=== PATIENT | female | born 1985 | race Caucasian/White ===

== ENCOUNTER 2018-01-02 09:02 | Emergency (ER) | payer SELFPAY | END 2018-01-02 10:31 | disposition home or self-care (01) | LOC: ER 09:02 | DX: J02.9 Acute pharyngitis, unspecified (principal); J45.909 Unspecified asthma, uncomplicated | CPT/HCPCS: 99283 ==

== ENCOUNTER 2018-12-29 07:14 | Emergency (ER) | payer SELFPAY ==
[2018-01-02 10:08] VITALS: BP 115/77
[~2018-12-29] VITALS: Ht 160 cm; Wt 87.5 kg
[~2018-12-29 07:14] MED LIST: ALBU2.5V8 INH; AMOX1TAB61 PO; BENZ100C PO; CETI10TA22 PO; FLUC150T PO; FLUT10.6 IH; FLUT12AE INH; FLUT1DIS3 IH; LEVO500T59 PO; METH4TAB2 PO; MONT10TA6 PO; PANT40TA3 PO; PRED20TA PO; PRED5TAB19 PO
[2018-12-29] MEDS ORDERED: GUAI12003 PO (07:46)
[2018-12-29] MEDS ORDERED: PRED50TA PO (07:46)
[2018-12-29] MEDS ORDERED: CEPH-264 PO (07:46)
--- NOTE | 2018-12-29 08:01 | PHYS DOC ---
Past Medical History Past Medical History: Asthma Past Surgical History: Alcohol Use: Rarely Drug Use: None Adult General Chief Complaint Chief Complaint: COUGH HPI HPI Patient is a 33 year old female with history of asthma who presents with nasal congestion, rhinorrhea, nonproductive cough past several days. Patient also reports sore throat. No fever chills, nausea vomiting or sweats. No palpitations , shortness breath or chest pain. No other acute symptoms or complaints. No medications or therapy's taken prior to ED arrival. Patient does report history of asthma with previous hospitalization due to asthma. She does not routinely use inhalers and does not have a primary care provider. [] Review of Systems Review of Systems ROS as per HPI [] All other systems were reviewed and found to be within normal limits, except as documented in this note. Allergies Allergies Allergies Coded Allergies Type Severity Reaction Last Updated Verified No Known Drug Allergies 07/12/14 No Physical Exam Physical Exam Constitutional: Well developed, well nourished, no acute distress, non-toxic appearance. [] HENT: Normocephalic, atraumatic, bilateral external ears normal, oropharynx moist, no oral exudates, nose ingestion, clear rhinorrhea[] Eyes: PERRLA, EOMI, conjunctiva normal. [] Neck: Normal range of motion. [] Cardiovascular:Heart rate regular rhythm, no murmur [] Lungs & Thorax: Respirations nonlabored mildly diminished, no wheezes rales or rhonchi. [] Abdomen: Bowel sounds normal, soft, no tenderness. [] Skin: Warm, dry. [] Back: No tenderness. [] Extremities: No tenderness. [] Neurologic: Alert and oriented X 3, normal motor function, normal sensory function, no focal deficits noted. [] Psychologic: Affect normal, judgement normal, mood normal. [] Current Patient Data Vital Signs Vital Signs Date Time Temp Pulse Resp B/P (MAP) Pulse Ox O2 Delivery O2 Flow Rate FiO2 12/29/18 07:29 98.6 90 20 137/76 (96) 98 Room Air 98.6 EKG EKG [] Radiology/Procedures Radiology/Procedures [] Course & Med Decision Making Course & Med Decision Making Pertinent Labs and Imaging studies reviewed. (See chart for details) [URI symptoms. Really no signs of asthma exacerbation. Patient prescribed steroids and instructed to take if she becomes short of breath. PCP follow-up recommended. Return precautions reviewed.] Stewart Disclaimer Stewart Disclaimer This electronic medical record was generated, in whole or in part, using a voice recognition dictation system. Departure Departure Impression: Primary Impression: Bronchitis Disposition: 01 HOME, SELF-CARE Condition: GOOD Patient Instructions: Bronchitis, [id number] Additional Instructions: Please take antibiotics and Mucinex as directed. If you become short of breath or start wheezing, fill steroid prescription. Follow-up with local primary care physician in 3-5 days for reevaluation. Return to the ED if new or worsening symptoms. Scripts Guaifenesin (MUCINEX) 1,200 Mg Tbmp.12hr 1 TAB PO BID, #20 TAB Prov: YORDY VALDERRAMA DO 12/29/18 Cephalexin (KEFLEX) 500 Mg Capsule 1 CAP PO TID, #21 CAP Prov: YORDY VALDERRAMA DO 12/29/18 Prednisone (PREDNISONE) 50 Mg Tablet 1 TAB PO DAILY, #5 TAB Prov: YORDY VALDERRAMA DO 12/29/18 YORDY VALDERRAMA DO Dec 29, 2018 08:01
== END 2018-12-29 08:00 | disposition home or self-care (01) ==
LOC: ER 07:14
DX: J45.909 Unspecified asthma, uncomplicated (principal); Z98.890 Other specified postprocedural states
CPT/HCPCS: 99283

== ENCOUNTER 2019-02-07 14:02 | Emergency (ER) | payer SELFPAY ==
[~2019-02-07] VITALS: Ht 160 cm; Wt 86.2 kg
[~2019-02-07 14:02] MED LIST changes: +CEPH-264 PO; +GUAI12003 PO; +PRED50TA PO
[2019-02-07 15:15] VITALS: BP 137/67
[2019-02-07] MEDS ORDERED: FLUC150T PO (16:46)
[2019-02-07] MEDS ORDERED: AMOX1TAB61 PO (16:46)
--- NOTE | 2019-02-07 16:46 | PHYS DOC ---
Past Medical History Past Medical History: Asthma Past Surgical History: Alcohol Use: Rarely Drug Use: None Adult General Chief Complaint Chief Complaint: Congestion HPI HPI Patient is a 34 year old female who presents with a slight cough and nasal congestion, she states the nasal congestion has been going on for months. Patient states she's tried ilmc-qss-ecjasbs remedies including Mucinex DM with no relief. She believes she has a sinus infection. She states she typically has to get antibiotics to clear it. Patient denies any fever. Review of Systems Review of Systems Constitutional: Denies fever or chills [] Eyes: Denies change in visual acuity, redness, or eye pain [] HENT: Reports nasal congestion, denies sore throat [] Respiratory: Reports slight cough, denies shortness of breath [] Cardiovascular: No additional information not addressed in HPI [] GI: Denies abdominal pain, nausea, vomiting, bloody stools or diarrhea [] : Denies dysuria or hematuria [] Musculoskeletal: Denies back pain or joint pain [] Integument: Denies rash or skin lesions [] Neurologic: Denies headache, focal weakness or sensory changes [] ipsia [] All other systems were reviewed and found to be within normal limits, except as documented in this note. Allergies Allergies Allergies Coded Allergies Type Severity Reaction Last Updated Verified No Known Drug Allergies 07/12/14 No Physical Exam Physical Exam Constitutional: Well developed, well nourished, no acute distress, non-toxic appearance. [] HENT: Normocephalic, atraumatic, bilateral external ears normal, oropharynx moist, no oral exudates, bilateral nasal turbinates are boggy and erythematous, moderate frontal and maxillary sinus tenderness. Patient sounds congested nasally. Eyes: PERRLA, EOMI, conjunctiva normal, no discharge. [] Neck: Normal range of motion, no tenderness, supple, no stridor. [] Cardiovascular:Heart rate regular rhythm, no murmur [] Lungs & Thorax: Bilateral breath sounds clear to auscultation [] Abdomen: Bowel sounds normal, soft, no tenderness, no masses, no pulsatile masses. [] Skin: Warm, dry, no erythema, no rash. [] Back: No tenderness, no CVA tenderness. [] Extremities: No tenderness, no cyanosis, no clubbing, ROM intact, no edema. [] Neurologic: Alert and oriented X 3, normal motor function, normal sensory function, no focal deficits noted. [] Psychologic: Affect normal, judgement normal, mood normal. [] Current Patient Data Vital Signs Vital Signs Date Time Temp Pulse Resp B/P (MAP) Pulse Ox O2 Delivery O2 Flow Rate FiO2 02/07/19 15:15 98.1 88 16 137/67 (90) 98 Room Air 98.1 EKG EKG [] Radiology/Procedures Radiology/Procedures [] Course & Med Decision Making Course & Med Decision Making Pertinent Labs and Imaging studies reviewed. (See chart for details) This is a 34-year-old female patient with acute sinus infection. She has tried icqz-oun-ouzhvfu remedies with no relief. Symptoms have been going on for months. Will be discharged with Augmentin. She was given prescription for fluconazole because she gets yeast infections from antibiotics. I also recommended probiotics and oral yogurt. Dragon Disclaimer Dragon Disclaimer This electronic medical record was generated, in whole or in part, using a voice recognition dictation system. Departure Departure Impression: Primary Impression: Acute sinusitis Additional Impression: Cough Disposition: 01 HOME, SELF-CARE Condition: STABLE Referrals: NO PCP (PCP) follow up with your doctor in 1-2 weeks Patient Instructions: Cough, Adult, Jmin-vk-[id number], Sinusitis Additional Instructions: You were seen for a sinus infection, we put you on antibiotics, ensure you complete them. Continue using qbqp-gsd-xlmbgnx remedies. Also increase your yogurt intake, ensure you complete your fluconazole. Scripts Fluconazole (DIFLUCAN) 150 Mg Tablet 1 TAB PO ONCE, #1 TAB 1 Refill Prov: JANET FREIRE APRN 02/07/19 Amoxicillin/Potassium Clav (AUGMENTIN 875-125 TABLET) 1 Each Tablet 1 TAB PO BID, #20 TAB Prov: JANET FREIRE APRN 02/07/19 Problem Qualifiers Primary Impression: Acute sinusitis Sinusitis location: maxillary Recurrence: not specified as recurrent Qualified Codes: J01.00 - Acute maxillary sinusitis, unspecified JANET FREIRE APRN Feb 07, 2019 16:46
== END 2019-02-07 17:19 | disposition home or self-care (01) ==
LOC: ER 14:02
DX: J01.00 Acute maxillary sinusitis, unspecified (principal); J45.909 Unspecified asthma, uncomplicated; Z98.890 Other specified postprocedural states
CPT/HCPCS: 87070; 87880; 99283

== ENCOUNTER 2021-02-07 14:37 | Emergency (ER) | payer SELFPAY ==
[~2021-02-07] VITALS: Ht 157.5 cm; Wt 120.0 kg
[~2021-02-07 14:37] MED LIST changes: -CETI10TA22 PO; +CETI10TA74 PO; +MONT10TA49 PO; -MONT10TA6 PO; -PANT40TA3 PO; +PANT40TA77 PO
[2021-02-07] MEDS ORDERED: PRED50TA PO (16:40)
[2021-02-07] MEDS ORDERED: AMOX1TAB61 PO (16:40)
--- NOTE | 2021-02-07 16:41 | ED.ADGEN ---
Past Medical History Past Medical History: No Pertinent History Past Surgical History: No Surgical History Smoking Status: Current Every Day Smoker Alcohol Use: Rarely Drug Use: None General Adult EDM: Chief Complaint: FACE PAIN HPI: HPI: Patient is a 36-year-old female past medical history of asthma who presents to the emergency room complaining of 2 months of facial pressure and congestion. Patient states that she was diagnosed with sinusitis and 3 weeks ago was placed on a Z-Jairo which did not help her symptoms. She states she is continuously gotten worse and has a lot of pressure in her forehead and cheeks. She has had multiple infections in the past. She is now also starting to get chest compressions and cough. She denies any kind of chest pain. She has not had any kind of fevers. She does not have headaches. She does not have other medical problems. Review of Systems: Review of Systems: Complete ROS is negative unless otherwise documented in HPI Current Medications: Current Medications Medications (Trade) Dose Ordered Sig/Barak Start Time Stop Time Status Last Admin Dose Admin Amoxicillin/ Clavulanate Potassium (Augmentin 875/ 125mg) 1 tab 1X ONCE 02/07/21 16:45 02/07/21 16:46 Allergies: Allergies: Allergies Coded Allergies Type Severity Reaction Last Updated Verified No Known Drug Allergies 07/12/14 No Physical Exam: PE: General: Awake, alert, NAD. Well Nourished, well hydrated. Cooperative HEENT: Atraumatic, EOMI, PERRL, airway patent, moist oral mucosa, swollen nasal turbinates, TMs normal bilaterally without effusion or erythema, sinus tenderness Neck: Supple, trachea midline Respiratory: CTA bilaterally, normal effort, no wheezing/crackles CV: RRR, no murmur, cap refill <2 GI: Soft, nondistended, nontender, no masses MSK: No obvious deformities Skin: Warm, dry, intact Neuro: A&O x3, speech NL, sensory and motor grossly intact, no focal deficits Psych: Normal affect, normal mood, not suicidal or homicidal Current Patient Data: Vital Signs: Vital Signs Date Time Temp Pulse Resp B/P (MAP) Pulse Ox O2 Delivery O2 Flow Rate FiO2 02/07/21 15:27 98.6 95 20 118/85 (96) 99 Room Air 98.6 EKG: EKG: [] Heart Score: C/O Chest Pain: N/A Risk Factors: Risk Factors: DM, Current or recent (<one month) smoker, HTN, HLP, family hi story of CAD, obesity. Risk Scores: Score 0 - 3: 2.5% MACE over next 6 weeks - Discharge Home Score 4 - 6: 20.3% MACE over next 6 weeks - Admit for Clinical Observation Score 7 - 10: 72.7% MACE over next 6 weeks - Early Invasive Strategies Radiology/Procedures: Radiology/Procedures: [] Course & Med Decision Making: Course & Med Decision Making Pertinent Labs and Imaging studies reviewed. (See chart for details) Patient is a 36-year-old female who presents to the emergency room complaining of 2 months of sinus congestion and sinus pressure. This is concerning for bacterial sinusitis. Patient will be placed on Augmentin. Patient is also having new onset bronchitis. We will treat her with steroids for this. Patient does not appear to have any difficulty with breathing at this time. She does not have diabetes or any signs of invasive sinusitis. Patient's test results and vitals while in the ED were fully reviewed and discussed with the patient. Patient is stable and at this time does not need admission to the hospital. We have discussed strict return precautions and the importance of following up with their Primary Care Physician. Patient stated understanding and was given an opportunity to ask any questions. Patient is in agreement with plan. Stewart Disclaimer: Stewart Disclaimer: This electronic medical record was generated, in whole or in part, using a voice recognition dictation system. Departure Departure Impression: Primary Impression: Acute sinusitis Disposition: 01 DC HOME SELF CARE/HOMELESS Condition: STABLE Referrals: NO PCP (PCP) Patient Instructions: Sinusitis Scripts Amoxicillin/Potassium Clav (AUGMENTIN 875-125 TABLET) 1 Each Tablet 1 TAB PO Q12HR, #28 TAB Prov: VIKTORIYA DUNAWAY MD 02/07/21 Prednisone (PREDNISONE) 50 Mg Tablet 1 TAB PO DAILY, #5 TAB Prov: VIKTORIYA DUNAWAY MD 02/07/21 VIKTORIYA DUNAWAY MD Feb 07, 2021 16:40
[2021-02-07] MEDS ORDERED: AMOXICILLIN/K CLAV 875/125MG TABLET. PO ONE (16:45)
[2021-02-07 16:50] VITALS: BP 152/75
== END 2021-02-07 16:50 | disposition home or self-care (01) ==
LOC: ER 14:37
DX: J01.90 Acute sinusitis, unspecified (principal); R09.81 Nasal congestion; R05 Cough; J45.909 Unspecified asthma, uncomplicated; F17.200 Nicotine dependence, unspecified, uncomplicated
CPT/HCPCS: 99283

== ENCOUNTER 2021-03-05 11:39 | Emergency (ER) | payer SELFPAY ==
[~2021-03-05] VITALS: Ht 157.5 cm; Wt 87.0 kg
[2021-03-05 11:50] VITALS: BP 117/73
[2021-03-05 12:49] LABS: BASO # 0.1 x10^3/uL (0.0-0.2); BASO % 1 % (0-3); EOS # 0.2 x10^3/uL (0.0-0.7); EOS % 2 % (0-3); HEMATOCRIT 41.3 % (36.0-47.0); HEMOGLOBIN 13.9 g/dL (12.0-15.5); LYMPH # 2.5 x10^3/uL (1.0-4.8); LYMPH % 21 % (24-48); MEAN CORPUSCULAR HEMOGLOBIN 29 pg (25-35); MEAN CORPUSCULAR HGB CONC 34 g/dL (31-37); MEAN CORPUSCULAR VOLUME 85 fL (79-100); MONO # 1.4 x10^3/uL (0.0-1.1); MONO % 12 % (0-9); NEUT # 7.8 x10^3/uL (1.8-7.7); NEUT % 65 % (31-73); PLATELET COUNT 325 x10^3/uL (140-400); RED BLOOD COUNT 4.84 x10^6/uL (3.50-5.40); WHITE BLOOD COUNT 12.1 x10^3/uL (4.0-11.0)
[2021-03-05 12:56] LABS: CALCIUM 8.5 mg/dL (8.5-10.1); CREATININE 0.7 mg/dL (0.6-1.0); GFR 94.2
[2021-03-05 13:02] LABS: ALBUMIN 3.4 g/dL (3.4-5.0); ALBUMIN/GLOBULIN RATIO 0.9 (1.0-1.7); TOTAL BILIRUBIN 0.5 mg/dL (0.2-1.0); TOTAL PROTEIN 7.1 g/dL (6.4-8.2)
[2021-03-05] MEDS: KETOROLAC 15 MG/ML VIAL. IVP ONE (13:22)
[2021-03-05] MEDS ORDERED: IOHEXOL 300 MG/ML 100ML VIAL. ONE (13:49)
[2021-03-05 13:50] LABS: BILIRUBIN,URINE NEGATIVE (NEG); CLARITY,URINE CLEAR; COLOR,URINE YELLOW; NITRITE,URINE NEGATIVE (NEG); PH,URINE 6.5 (<5.0-8.0); PROTEIN,URINE NEGATIVE (NEG-TRACE); UROBILINOGEN,URINE 0.2 mg/dL (0.2 mg/dL)
[2021-03-05] MEDS ORDERED: CONTRAST GIVEN. MC PRN (14:00)
[2021-03-05] MEDS: IOHEXOL 300 MG/ML 100ML VIAL. IV ONE (14:08)
[2021-03-05 14:10] LABS: WBC,URINE OCC /HPF (0-4)
[2021-03-05 14:11] LABS: BACTERIA,URINE 0 /HPF (0-FEW)
[2021-03-05] MEDS: fentaNYL PF VIAL 100 MCG/2 ML VIAL IVP ONE (14:27)
--- NOTE | 2021-03-05 15:04 | RAD ---
INDICATION: Reason: right flank pain / Spl. Instructions: 75ML OMNI 300 / History: . COMPARISON: August 2012 TECHNIQUE: Axial CT images obtained through the abdomen and pelvis with contrast. One or more of the following individualized dose reduction techniques were utilized for this examinat ion: 1. Automated exposure control; 2. Adjustment of the mA and/or kV according to patient size; 3 . Use of iterative reconstruction technique. FINDINGS: Abdominal aorta is not aneurysmal. Fat-containing umbilical hernia. No intrahepatic bile duct dilation. Liver is mildly low density which can be seen with mild fatty inf iltration. Low-density within the liver adjacent to the falciform ligament most commonly from focal fat. No peripancreatic fluid collection. Spleen is unremarkable. No hydronephrosis. Urinary bladder is decompressed. Rim-enhancing lesion at the right adnexa suspected measuring approximately 21 mm. No periappendiceal inflammatory changes. No dilated loops of bowel to suggest obstruction. Degenerative changes of the spine. IMPRESSION: * No evidence of bowel obstruction, hydronephrosis or appendicitis. * Suspected rim-enhancing lesion of the right ovary. If further clarification is desired ultrasound could further assess. Electronically signed by: Tomas De Anda MD (03/05/2021 3:02 PM) [id number]
--- NOTE | 2021-03-05 15:40 | ED.ADGEN ---
Past Medical History Past Medical History: No Pertinent History Past Surgical History: Smoking Status: Current Every Day Smoker Alcohol Use: Rarely Drug Use: None General Adult EDM: Chief Complaint: FLANK PAIN HPI: HPI: Patient is a 36 year old female coming in for right flank pain since yesterday. States she had low-grade fever this morning. For chronic sinusitis with 2 different antibiotics. Patient states she is still congested. Denies any cough, dysuria, hematuria. Denies any vaginal bleeding or discharge, denies any dyspareunia. Denies any vomiting or diarrhea. Has a history of kidney infections and no history of kidney stones. Review of Systems: Review of Systems: All other systems within normal limits except for as noted in the HPI Current Medications: Current Medications Medications (Trade) Dose Ordered Sig/Barak Start Time Stop Time Status Last Admin Dose Admin Fentanyl Citrate (Fentanyl 2ml Vial) 75 mcg 1X ONCE 03/05/21 14:30 03/05/21 14:31 DC 03/05/21 14:27 75 MCG Info (CONTRAST GIVEN -- Rx MONITORING) 1 each PRN DAILY PRN 03/05/21 14:00 03/05/21 17:37 DC Iohexol (Omnipaque 300 Mg/ml) 100 ml STK-MED ONCE 03/05/21 13:49 03/05/21 13:50 DC Ketorolac Tromethamine (Toradol 15mg Vial) 15 mg 1X ONCE 03/05/21 12:45 03/05/21 12:46 DC 03/05/21 13:22 15 MG Allergies: Allergies: Allergies Coded Allergies Type Severity Reaction Last Updated Verified No Known Drug Allergies 07/12/14 No Physical Exam: PE: Constitutional: Well developed, well nourished, no acute distress, non-toxic appearance. [] HENT: Normocephalic, atraumatic, bilateral external ears normal, nose normal. [] Eyes: PERRLA, conjunctiva normal, no discharge. [] Neck: No rigidity, supple, no stridor. [] Cardiovascular: Regular rate and rhythm, brisk cap refill [] Lungs & Thorax: Non labored symmetric respirations, no tachypnea or respiratory distress [] Abdomen: Soft, nondistended, nontender, no Muñiz sign, no point bony point tenderness.. Skin: Warm, dry, no erythema, no rash. [] Back: Unremarkable, right CVA tenderness Extremities: No deformities, range of motion grossly intact, no lower extremity edema [] Neurologic: Alert and oriented X 3, no focal deficits noted. [] Psychologic: Affect normal, judgement normal, mood normal. [] Current Patient Data: Labs: Laboratory Tests Test 03/05/21 12:27 03/05/21 13:30 03/05/21 13:38 White Blood Count 12.1 x10^3/uL (4.0-11.0) H Red Blood Count 4.84 x10^6/uL (3.50-5.40) Hemoglobin 13.9 g/dL (12.0-15.5) Hematocrit 41.3 % (36.0-47.0) Mean Corpuscular Volume 85 fL (79-100) Mean Corpuscular Hemoglobin 29 pg (25-35) Mean Corpuscular Hemoglobin Concent 34 g/dL (31-37) Red Cell Distribution Width 13.0 % (11.5-14.5) Platelet Count 325 x10^3/uL (140-400) Neutrophils (%) (Auto) 65 % (31-73) Lymphocytes (%) (Auto) 21 % (24-48) L Monocytes (%) (Auto) 12 % (0-9) H Eosinophils (%) (Auto) 2 % (0-3) Basophils (%) (Auto) 1 % (0-3) Neutrophils # (Auto) 7.8 x10^3/uL (1.8-7.7) H Lymphocytes # (Auto) 2.5 x10^3/uL (1.0-4.8) Monocytes # (Auto) 1.4 x10^3/uL (0.0-1.1) H Eosinophils # (Auto) 0.2 x10^3/uL (0.0-0.7) Basophils # (Auto) 0.1 x10^3/uL (0.0-0.2) Sodium Level 137 mmol/L (136-145) Potassium Level 4.0 mmol/L (3.5-5.1) Chloride Level 104 mmol/L (98-107) Carbon Dioxide Level 24 mmol/L (21-32) Anion Gap 9 (6-14) Blood Urea Nitrogen 11 mg/dL (7-20) Creatinine 0.7 mg/dL (0.6-1.0) Estimated GFR (Cockcroft-Gault) 94.2 BUN/Creatinine Ratio 16 (6-20) Glucose Level 74 mg/dL (70-99) Calcium Level 8.5 mg/dL (8.5-10.1) Total Bilirubin 0.5 mg/dL (0.2-1.0) Aspartate Amino Transferase (AST) 18 U/L (15-37) Alanine Aminotransferase (ALT) 26 U/L (14-59) Alkaline Phosphatase 78 U/L (46-116) Total Protein 7.1 g/dL (6.4-8.2) Albumin 3.4 g/dL (3.4-5.0) Albumin/Globulin Ratio 0.9 (1.0-1.7) L Lipase 71 U/L (73-393) L Urine Collection Type Void Urine Color Yellow Urine Clarity Clear Urine pH 6.5 (<5.0-8.0) Urine Specific [place] <=1.005 (1.000-1.030) Urine Protein Negative mg/dL (NEG-TRACE) Urine Glucose (UA) Negative mg/dL (NEG) Urine Ketones (Stick) Negative mg/dL (NEG) Urine Blood Small (NEG) Urine Nitrite Negative (NEG) Urine Bilirubin Negative (NEG) Urine Urobilinogen Dipstick 0.2 mg/dL (0.2 mg/dL) Urine Leukocyte Esterase Negative (NEG) Urine RBC 1-2 /HPF (0-2) Urine WBC Occ /HPF (0-4) Urine Squamous Epithelial Cells Mod /LPF Urine Bacteria 0 /HPF (0-FEW) POC Urine HCG, Qualitative Hcg negative (Negative) Laboratory Tests 03/05/21 12:27 Laboratory Tests 03/05/21 12:27 Vital Signs: Vital Signs Date Time Temp Pulse Resp B/P (MAP) Pulse Ox O2 Delivery O2 Flow Rate FiO2 03/05/21 11:50 98.3 97 18 117/73 (88) 98 Room Air 98.3 EKG: EKG: [] Heart Score: C/O Chest Pain: No Risk Factors: Risk Factors: DM, Current or recent (<one month) smoker, HTN, HLP, family history of CAD, obesity. Risk Scores: Score 0 - 3: 2.5% MACE over next 6 weeks - Discharge Home Score 4 - 6: 20.3% MACE over next 6 weeks - Admit for Clinical Observation Score 7 - 10: 72.7% MACE over next 6 weeks - Early Invasive Strategies Radiology/Procedures: Radiology/Procedures: STUDY: US US PELVIS COMPLETE HISTORY: Right ovarian lesion seen by CT. COMPARISON: Same day CT abdomen/pelvis. TECHNIQUE: Pelvic ultrasound was performed with transabdominal and transvaginal probes. FINDINGS: The uterus measures 9.8 x 5.1 x 5.2 cm. The endometrial echo measures 0.67 m in thickness. Unremarkable uterine echotexture. No fluid along the endometrial canal. The right ovary measures 4 x 2.3 x 1.8 cm and the left ovary 2.3 x 2.5 x 2.2 cm. Doppler flow is maintained. The crenulated/collapsing right ovarian cyst seen by CT is not appreciated on ultrasound. No complex cyst or mass at the right adnexa. Small amount of right adnexal fluid. Several follicles. At the left ovary, thinly septated cystic focus measuring up to 1 cm with no internal or peripheral Doppler flow. Small amount of free fluid within the deep pelvis. IMPRESSION: 1. Unremarkable uterus and endometrium for patient age. 2. The collapsing cyst seen by CT at the right adnexa is not apparent by ultrasound. Small amount of right adnexal and pelvic free fluid. The findings are favored most likely physiologic with a ruptured hemorrhagic cyst felt unlikely given the relatively simple appearance of the free fluid. 3. Small thinly septated left ovarian cyst without any suspicious features that would warrant dedicated follow-up. []INDICATION: Reason: right flank pain / Spl. Instructions: 75ML OMNI 300 / History: . COMPARISON: August 2012 TECHNIQUE: Axial CT images obtained through the abdomen and pelvis with contrast. One or more of the following individualized dose reduction techniques were utilized for this examination: 1. Automated exposure control; 2. Adjustment of the mA and/or kV according to patient size; 3. Use of iterative reconstruction technique. FINDINGS: Abdominal aorta is not aneurysmal. Fat-containing umbilical hernia. No intrahepatic bile duct dilation. Liver is mildly low density which can be seen with mild fatty infiltration. Low-density within the liver adjacent to the falciform ligament most commonly from focal fat. No peripancreatic fluid collection. Spleen is unremarkable. No hydronephrosis. Urinary bladder is decompressed. Rim-enhancing lesion at the right adnexa suspected measuring approximately 21 mm. No periappendiceal inflammatory changes. No dilated loops of bowel to suggest obstruction. Degenerative changes of the spine. IMPRESSION: * No evidence of bowel obstruction, hydronephrosis or appendicitis. * Suspected rim-enhancing lesion of the right ovary. If further clarification is desired ultrasound could further assess. Course & Med Decision Making: Course & Med Decision Making Pertinent Labs and Imaging studies reviewed. (See chart for details) [] Dragon Disclaimer: Dragon Disclaimer: This electronic medical record was generated, in whole or in part, using a voice recognition dictation system. Departure Departure Impression: Primary Impression: Acute sinusitis Additional Impression: Right flank pain Disposition: 01 DC HOME SELF CARE/HOMELESS Condition: STABLE Referrals: NO PCP (PCP) Patient Instructions: Sinusitis Additional Instructions: Take wlnw-hza-apyhqmt Mucinex and increase fluid intake. Use nasal flushing device such as a [place] pot. Scripts Doxycycline Hyclate (DOXYCYCLINE HYCLATE) 100 Mg Capsule 1 CAP PO BID for antibiotic for 10 Days, #20 CAP Prov: ODIN MCKEON MD 03/05/21 Azelastine Hcl (AZELASTINE HCL) 137 Mcg/0.137 Ml [place].pump 2 SPRAY NS BID for antihistamine for 30 Days, #30 ML 0 Refills Prov: ODIN MCKEON MD 03/05/21 Problem Qualifiers ODIN MCKEON MD Mar 05, 2021 15:40
--- NOTE | 2021-03-05 16:20 | RAD ---
STUDY: US US PELVIS COMPLETE HISTORY: Right ovarian lesion seen by CT. COMPARISON: Same day CT abdomen/pelvis. TECHNIQUE: Pelvic ultrasound was performed with transabdominal and transvaginal probes. FINDINGS: The uterus measures 9.8 x 5.1 x 5.2 cm. The endometrial echo measures 0.67 m in thickness. Unremarkab le uterine echotexture. No fluid along the endometrial canal. The right ovary measures 4 x 2.3 x 1.8 cm and the left ovary 2.3 x 2.5 x 2.2 cm. Doppler flow is main tained. The crenulated/collapsing right ovarian cyst seen by CT is not appreciated on ultrasound. No complex cyst or mass at the right adnexa. Small amount of right adnexal fluid. Several follicles. At the left ovary, thinly septated cystic focus measuring up to 1 cm with no internal or peripheral Dopp ler flow. Small amount of free fluid within the deep pelvis. IMPRESSION: 1. Unremarkable uterus and endometrium for patient age. 2. The collapsing cyst seen by CT at the right adnexa is not apparent by ultrasound. Small amount of right adnexal and pelvic free fluid. The findings are favored most likely physiologic with a rupture d hemorrhagic cyst felt unlikely given the relatively simple appearance of the free fluid. 3. Small thinly septated left ovarian cyst without any suspicious features that would warrant dedica loraine follow-up. Electronically signed by: AUDREY PRIEST MD (03/05/2021 4:17 PM) [facility]
[2021-03-05] MEDS ORDERED: DOXY100C2 PO (17:04)
[2021-03-05] MEDS ORDERED: AZEL137S3 NS (17:04)
== END 2021-03-05 17:37 | disposition home or self-care (01) ==
LOC: ER 11:39
DX: J01.90 Acute sinusitis, unspecified (principal); R50.9 Fever, unspecified; R10.9 Unspecified abdominal pain; F17.200 Nicotine dependence, unspecified, uncomplicated; Z98.890 Other specified postprocedural states
CPT/HCPCS: 36415; 74177; 76856; 80053; 81001; 81025; 83690; 85025; 96374; 96375; 99285; J1885; J3010; Q9967

== ENCOUNTER 2021-03-17 13:46 | Emergency (ER) | payer SELFPAY ==
[~2021-03-17] VITALS: Ht 157.5 cm; Wt 88.0 kg
[~2021-03-17 13:46] MED LIST changes: +AZEL137S3 NS; +DOXY100C2 PO
[2021-03-17 14:23] VITALS: BP 135/86
--- NOTE | 2021-03-17 16:57 | RAD ---
EXAM: Pelvic sonogram. HISTORY: Pain and bleeding. TECHNIQUE: Transabdominal and transvaginal sonographic imaging of the pelvis was performed. COMPARISON: CT dated 03/05/2021. FINDINGS: The uterus measures 10.4 x 4.9 x 5.3 cm. The endometrial stripe measures 2 mm in thickness. The ovaries are normal in size and demonstrate normal blood flow. No adnexal mass or cyst is seen. T here is no pelvic free fluid. IMPRESSION: Unremarkable pelvic sonogram. The recently demonstrated peripherally enhancing cystic les ion within the right ovary is not seen sonographically, possibly due to imaging technique or resoluti on of an involuting cyst. Electronically signed by: Barby Martínez MD (03/17/2021 4:55 PM) [id number]
[2021-03-17] MEDS ORDERED: METR-34 PO (17:12)
--- NOTE | 2021-03-17 17:14 | PHYS DOC ---
Past Medical History Past Medical History: No Pertinent History (FERNANDO FERNÁNDEZ BILLING MACHINE OPERATOR) Past Surgical History: (FERNANDO FERNÁNDEZ BILLING MACHINE OPERATOR) Smoking Status: Current Every Day Smoker Alcohol Use: Occasionally Drug Use: None (FERNANDO FERNÁNDEZ APRN) General Adult EDM: Chief Complaint: VAGINAL BLEEDING HPI: HPI: Patient is a 36 year old female who presents with states that she has been on antibiotics the last couple months for sinus infection by her ears nose throat doctor. She states that she just got off of antibiotics 2 to 3 days ago. She states she usually asked for Diflucan because she gets yeast infections. She states she forgot. States she began getting yeast infection symptoms and tried Monistat which did not help. She states that than she tried a boric acid vaginal suppository last night but began having some vaginal bleeding today and pressure type pelvic pain. She states that she is not due to start her period for the another 4 days. States that she is on pill control. She states her discomfort is a 5 out of 10. She denies any sexually transmitted disease concerns. She states that she is not going through more than 1 pad an hour. She states in fact she is wearing the same pad from this morning. (FERNANDO FERNÁNDEZ BILLING MACHINE OPERATOR) Review of Systems: Review of Systems: Constitutional: Denies fever or chills. [] Eyes: Denies change in visual acuity. [] HENT: Denies nasal congestion or sore throat. [] Respiratory: Denies cough or shortness of breath. [] Cardiovascular: Denies chest pain or edema. [] GI: + Low mid abdominal back pain, denies nausea, vomiting, bloody stools or diarrhea. [] : Denies dysuria. +Vaginal bleeding[] Musculoskeletal: Denies back pain or joint pain. [] Integument: Denies rash. [] Neurologic: Denies headache, focal weakness or sensory changes. [] Endocrine: Denies polyuria or polydipsia. [] Lymphatic: Denies swollen glands. [] Psychiatric: Denies depression or anxiety. [] (FERNANDO FERNÁNDEZ APRN) Heart Score: C/O Chest Pain: No Risk Factors: Risk Factors: DM, Current or recent (<one month) smoker, HTN, HLP, family history of CAD, obesity. Risk Scores: Score 0 - 3: 2.5% MACE over next 6 weeks - Discharge Home Score 4 - 6: 20.3% MACE over next 6 weeks - Admit for Clinical Observation Score 7 - 10: 72.7% MACE over next 6 weeks - Early Invasive Strategies (FERNANDO FERNÁNDEZ APRN) Allergies: Allergies: Allergies Coded Allergies Type Severity Reaction Last Updated Verified No Known Drug Allergies 07/12/14 No (FERNANDO FERNÁNDEZ APRN) Physical Exam: PE: Constitutional: Well developed, well nourished, no acute distress, non-toxic appearance. [] HENT: Normocephalic, atraumatic, bilateral external ears normal, oropharynx moist, no oral exudates, nose normal. [] Eyes: PERRLA, EOMI, conjunctiva normal, no discharge. [] Neck: Normal range of motion, no tenderness, supple, no stridor. [] Cardiovascular:Heart rate regular rhythm, no murmur [] Lungs & Thorax: Bilateral breath sounds clear to auscultation [] Abdomen: Bowel sounds normal, soft, no tenderness, no masses, no pulsatile masses. [] Skin: Warm, dry, no erythema, no rash. [] Back: No tenderness, no CVA tenderness. [] Extremities: No tenderness, no cyanosis, no clubbing, ROM intact, no edema. [] Neurologic: Alert and oriented X 3, normal motor function, normal sensory function, no focal deficits noted. [] Psychologic: Affect normal, judgement normal, mood normal. Normal physical exam [] (FERNANDO FERNÁNDEZ APRN) Current Patient Data: Vital Signs: Vital Signs Date Time Temp Pulse Resp B/P (MAP) Pulse Ox O2 Delivery O2 Flow Rate FiO2 03/17/21 14:23 98.1 85 12 135/86 (102) 98 Room Air 98.1 (FERNANDO FERNÁNDEZ APRN) EKG: EKG: [] (FERNANDO FERNÁNDEZ APRN) Radiology/Procedures: Radiology/Procedures: [] Impression: [facility] [address] [place], [place] [id number] IMAGING REPORT Signed PATIENT: MEI DUMONT DACCOUNT: [id number] : 1985 LOCATION: ER AGE: 36 SEX: F EXAM STATUS: REG ER ORD. PHYSICIAN: FERNANDO FERNÁNDEZ APRN REASON: VAGINAL BLEEDING AND PELVIC PAIN PROCEDURE: PELVIS COMPLETE EXAM: Pelvic sonogram. HISTORY: Pain and bleeding. TECHNIQUE: Transabdominal and transvaginal sonographic imaging of the pelvis was performed. COMPARISON: CT dated 03/05/2021. FINDINGS: The uterus measures 10.4 x 4.9 x 5.3 cm. The endometrial stripe measures 2 mm in thickness. The ovaries are normal in size and demonstrate normal blood flow. No adnexal mass or cyst is seen. There is no pelvic free fluid. IMPRESSION: Unremarkable pelvic sonogram. The recently demonstrated peripherally enhancing cystic lesion within the right ovary is not seen sonographically, possibly due to imaging technique or resolution of an involuting cyst. Electronically signed by: Barby Jurado MD (03/17/2021 4:55 PM) [id number] DICTATED and SIGNED BY: BARBY JURADO MD DATE: 03/17/21 [id number] 0 (FERNANDO FERNÁNDEZ APRN) Course & Med Decision Making: Course & Med Decision Making Pertinent Labs and Imaging studies reviewed. (See chart for details) See HPI. Alert and oriented x4. Ambulatory with a steady gait. Skin pink warm and dry. Vital signs within normal limits. Denies any urinary symptoms or sexual transmitted disease concerns. Patient agrees that this could possibly be her menstrual coming a little bit early due to the fact that she has been on antibiotics of which kills control out of her system. Abdomen is soft and nontender. Patient states that she was not having any foul-smelling vaginal discharge but she was having vaginal itching. She states she is having the same symptoms she usually has when she has a yeast infection. Ultrasound showed no acute findings. Pelvic exam showed no acute findings. Pelvic Exam: Associate Teacher present Abdomen: Nontender External Genitalia: Normal Skin Speculum: Normal vaginal mucosa, small bloody cervical discharge Bimanual: No adnexal masses or tenderness, No CMT [] (FERNANDO FERNÁNDEZ APRN) Dragon Disclaimer: Dragon Disclaimer: This electronic medical record was generated, in whole or in part, using a voice recognition dictation system. (FERNANDO FERNÁNDEZ APRN) Departure Departure Impression: Primary Impression: Vaginal bleeding Additional Impression: Yeast infection of the vagina Disposition: HOME / SELF CARE / HOMELESS Condition: STABLE Referrals: NO PCP (PCP) Patient Instructions: Candidal Vulvovaginitis, [id number] Additional Instructions: Follow-up with check viewer if needed. Take medication as prescribed and with food. Do not drink any alcohol with this medication as it can make you vomit. Drink plenty of fluids. Scripts Metronidazole (METRONIDAZOLE) 500 Mg Tablet 1 TAB PO BID for 7 Days, #14 TAB 0 Refills Prov: FERNANDO FERNÁNDEZ APRN 03/17/21 Attending Signature Attending Signature I have participated in the care of this patient and I have reviewed and agree with all pertinent clinical information above including history, exam, and recommendations. (CALI NUNO DO) FERNANDO FERNÁNDEZ APRN Mar 17, 2021 17:14 CALI NUNO DO Mar 18, 2021 13:20
[2021-03-17 18:05] LABS: BILIRUBIN,URINE NEGATIVE (NEG); CLARITY,URINE CLEAR; COLOR,URINE YELLOW; NITRITE,URINE NEGATIVE (NEG); PH,URINE 5.5 (<5.0-8.0); PROTEIN,URINE NEGATIVE (NEG-TRACE); UROBILINOGEN,URINE 0.2 mg/dL (0.2 mg/dL)
[2021-03-17 18:17] LABS: WBC,URINE RARE /HPF (0-4)
[2021-03-17 18:18] LABS: BACTERIA,URINE 0 /HPF (0-FEW)
== END 2021-03-17 19:55 | disposition home or self-care (01) ==
LOC: ER 13:46
DX: N93.9 Abnormal uterine and vaginal bleeding, unspecified (principal); B37.3 Candidiasis of vulva and vagina; F17.200 Nicotine dependence, unspecified, uncomplicated
CPT/HCPCS: 76856; 81001; 87491; 87591; 99284

== ENCOUNTER 2022-01-29 13:06 | Emergency (ER) | payer SELFPAY ==
[~2022-01-29] VITALS: Ht 157.5 cm; Wt 90.0 kg
[~2022-01-29 13:06] MED LIST changes: -DOXY100C2 PO; +DOXY100C3 PO; +METR-34 PO
[2022-01-29 13:38] VITALS: BP 121/91
[2022-01-29] MEDS ORDERED: NAPROXEN 500 MG TABLET PO STA (13:47)
--- NOTE | 2022-01-29 13:52 | PHYS DOC ---
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 Patient states she heard a pop sound from her calf. Patient states the pain is sharp and constant, denies anything specifically exacerbating it, states she is able to walk on it. Denies any personal family history of DVT. Review of Systems: Review of Systems: Constitutional: Denies fever or chills. [] Musculoskeletal: Reports right calf pain Integument: Denies rash. [] Neurologic: Denies headache, focal weakness or sensory changes. [] Psychiatric: Denies depression or anxiety. [] Heart Score: C/O Chest Pain: N/A Risk Factors: Risk Factors: DM, Current or recent (<one month) smoker, HTN, HLP, family history of CAD, obesity. Risk Scores: Score 0 - 3: 2.5% MACE over next 6 weeks - Discharge Home Score 4 - 6: 20.3% MACE over next 6 weeks - Admit for Clinical Observation Score 7 - 10: 72.7% MACE over next 6 weeks - Early Invasive Strategies Allergies: Allergies: Allergies Coded Allergies Type Severity Reaction Last Updated Verified No Known Drug Allergies 07/12/14 No Physical Exam: PE: Constitutional: Well developed, well nourished, no acute distress, non-toxic appearance. [] Skin: Warm, dry, no erythema, no rash. [] Back: No tenderness, no CVA tenderness. [] Extremities: Right lower extremity with no obvious deformity, tenderness diffusely throughout the calf on range of motion, no Achilles tendon tenderness, full range of motion to the right lower extremity, positive Homans' sign to the right lower extremity. Negative Vallejo sign, +2 right pedal pulse. Cap refill less than 2 seconds to right lower extremity Neurologic: Alert and oriented X 3, normal motor function, normal sensory function, no focal deficits noted. [] Psychologic: Affect normal, judgement normal, mood normal. [] EKG: EKG: [] Radiology/Procedures: Radiology/Procedures: []PROCEDURE: VENOUS LOWER EXTREMITY RIGHT STUDY: US DPLX VENOUS EXTREMITY LOWER RT INDICATION: Right calf pain. DVT. TECHNIQUE: Color-flow and pulsed wave duplex ultrasound with compression of venous structures of the right lower extremity. COMPARISON: None Available FINDINGS: Duplex ultrasound with compression of the deep venous structures of the right lower extremity from the common femoral vein through the popliteal vein is negative for DVT. The posterior tibial and peroneal veins are segmentally visualized and patent where seen. Normal venous waveforms and augmentation are noted throughout. IMPRESSION: No right lower extremity deep venous thrombosis. Electronically signed by: AUDREY PRIEST MD (01/29/2022 2:55 PM) [id number] DICTATED and SIGNED BY: AUDREY PRIEST MD DATE: 01/29/22 [id number] 0 Course & Med Decision Making: Course & Med Decision Making Pertinent Labs and Imaging studies reviewed. 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 Venous Doppler of the right lower extremity is negative for any acute findings. Right lower extremity was placed in a posterior leg splint by the ED EMT, neurovascular exam done by me post splinting is normal, instructed to get crutches from the pharmacy. Ice elevation encouraged. Provided Ortho for follow-up next week Stewart Disclaimer: Stewart Disclaimer: This electronic medical record was generated, in whole or in part, using a voice recognition dictation system. Departure Departure Impression: Primary Impression: Right leg pain Disposition: HOME / SELF CARE / HOMELESS Condition: STABLE Referrals: NO PCP (PCP) KSENIA PERRY Jr. DO [place] his office next week on Monday and set up a follow up appointment Patient Instructions: Musculoskeletal Pain Additional Instructions: You were seen for right calf pain, your venous Doppler of the right lower extr emity is negative. We encourage you to ice and elevate the extremity. Please contact the provided orthopedic doctor on Monday morning and set up a follow-up appointment Scripts Hydrocodone Bit/Acetaminophen (HYDROCODONE-APAP 5-325 ) 1 Tab Tablet 1 TAB PO PRN Q6HRS PRN for PAIN, #8 TAB 0 Refills Prov: JANET FREIRE CROWN PERFORATOR OPERATOR 01/29/22 Cyclobenzaprine Hcl (CYCLOBENZAPRINE HCL) 10 Mg Tablet 1 TAB PO TID, #30 TAB Prov: JANET FREIRE APRN 01/29/22 JANET FREIRE APRN Jan 29, 2022 13:52
[2022-01-29] MEDS ORDERED: CYCLOBENZAPRINE 10 MG TABLET. PO ONE (14:00)
[2022-01-29] MEDS ORDERED: HYDROcodone/APAP 5/325MG 1 TAB TABLET PO ONE (14:00)
--- NOTE | 2022-01-29 14:58 | RAD ---
STUDY: US DPLX VENOUS EXTREMITY LOWER RT INDICATION: Right calf pain. DVT. TECHNIQUE: Color-flow and pulsed wave duplex ultrasound with compression of venous structures of the right lower extremity. COMPARISON: None Available FINDINGS: Duplex ultrasound with compression of the deep venous structures of the right lower extremity from th e common femoral vein through the popliteal vein is negative for DVT. The posterior tibial and peroneal veins are segmentally visualized and patent where seen. Normal veno us waveforms and augmentation are noted throughout. IMPRESSION: No right lower extremity deep venous thrombosis. Electronically signed by: AUDREY PRIEST MD (01/29/2022 2:55 PM) [id number]
[2022-01-29] MEDS ORDERED: CYCL10TA19 PO (15:46)
[2022-01-29] MEDS ORDERED: HYDR-2761 PO (16:08)
== END 2022-01-29 16:40 | disposition home or self-care (01) ==
LOC: ER 13:06
DX: M79.661 Pain in right lower leg (principal); F17.200 Nicotine dependence, unspecified, uncomplicated
CPT/HCPCS: 29515; 93971; 99284